=== PATIENT | male | born 1990 | race Two or more races ===

== ENCOUNTER 2020-07-20 14:00 | Outpatient (RCR) | payer BC, SELFPAY ==
--- NOTE | 2020-07-20 15:47 | MHC.PT.EP ---
[facility] [place] Office [place] Office [place] Office [address] [place] [address] Dr Alvaro Lu [address] [phone] F: [phone] F: [phone] F: [phone] F: [phone] Physical Therapy Plan of Care Date of Evaluation: 07/20/20 Date of Surgery: NA Diagnosis: PAIN IN L RAQUELLDER Assessment: Pt IS 29 YO M REFERRED TO PT FROM DR JORDAN WITH L SHLDER PAIN. Pt REPORTS SOME INJURIES TO Richelle BARRIOS PLAYING HIGH SCHOOL FOOTBALL, THEN AN INJURY AFTER HS (PLAYING FOOTBALL) TORN LIGAMENT . HAS NOT HAD PT. NO RECENT XRAYS. 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 PRESENTS WITH SOME POSTURAL DEFICITS (SLOUCHED POSTURE, GH SULCUS). Pt REPORTS MOST EXS HE WAS DOING IN PAST INVOLVE BENCH WORK (PRESSES ETC). SHOULD BENEFIT FROM RC/SCAP WORK FOR INCREASED SYMMETRY, PEC STRETCHING, POSTURE WORK, ST WORK PRN AND KT/FLOWERS TAPE TO INCREASE JOINT STABILIZATION. Frequency and Duration: The patient will be seen 2X/WK X 2 WKS THEN 1X/WK X 2 MORE WKS (45$ CO-PAY) Short Term Goals: 1.INCREASED POSTURE AWARENESS AND AWARENESS SHLDER CARE 2. I KT WITH ASSIST AT HOME Half-Way Goals: 1. I HEP WITH DC EX PLAN 2. DECREASED LSHLDER PAIN AT LEAST 50% WITH ADLS Treatment Plan: Modalities to reduce pain, spasms and effusion. Manual therapy to restore motion and function. Therapeutic exercise to improve strength and flexibility. Neuromuscular re-education for posture and balance. Therapeutic activities to return to functional activities of daily living. Electronically signed by: CASPER WILLIS PT Please sign and return to therapist. Thank you for your referral.
--- NOTE | 2020-08-31 08:41 | MHC.PT.DC ---
[facility] [place] Office [place] Office [place] Office [address] [place] [address] Dr Alvaro Lu [address] [phone] F: [phone] F: [phone] F: [phone] F: [phone] Physical Therapy Discharge Report Diagnosis: PAIN IN L RAQUELLDER Date of Surgery: NA Date of Evaluation: 07/20/20 Date of Discharge: 08/31/20 Treatments to Date: 1 Cancellations to Date: No Shows to Date: 2 Discharge Status: Visit Non-compliance Discharge Summary: Pt SEEN FOR INIT EVAL ONLY THEN NO SHOWED FURTHER APPTS. PER INIT EVAL :Pt IS 29 YO M REFERRED TO PT FROM DR JORDAN WITH L SOPHIE PAIN. Pt REPORTS SOME INJURIES TO Richelle BARRIOS PLAYING HIGH SCHOOL FOOTBALL, THEN AN INJURY AFTER HS (PLAYING FOOTBALL) TORN LIGAMENT . HAS NOT HAD PT. NO RECENT XRAYS. 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 PRESENTS WITH SOME POSTURAL DEFICITS (SLOUCHED POSTURE, GH SULCUS). Pt REPORTS MOST EXS HE WAS DOING IN PAST INVOLVE BENCH WORK (PRESSES ETC). SHOULD BENEFIT FROM RC/[employer] WORK FOR INCREASED SYMMETRY, PEC STRETCHING, POSTURE WORK, ST WORK PRN AND KT/FLOWERS TAPE TO INCREASE JOINT STABILIZATION. Electronically signed by: CASPER WILLIS PT Please sign and return to therapist. Thank you for your referral.
== END 2020-08-31 08:43 | disposition other institution (70) ==
LOC: HO.PTWFD 14:00
PROVIDERS: PCP Family Medicine; Visit Provider Family Medicine
DX: M25.512 Pain in left shoulder (principal)
CPT/HCPCS: 97110; 97140; 97162

== ENCOUNTER 2020-07-20 15:54 | Outpatient (REF) | payer BC, SELFPAY ==
[2020-07-20 16:47] LABS: Alanine Aminotransferase 53 U/L (0-40); Albumin Level 4.5 g/dL (3.5-5.0); Alkaline Phosphatase 56 U/L (39-117); Anion Gap 12 (12-20); Aspartate Amino Transferase 30 U/L (5-37); Bilirubin Total 1.4 mg/dL (0.0-1.0); Blood Urea Nitrogen 10 mg/dL (9-16); Calcium 9.4 mg/dL (8.4-10.2); Carbon Dioxide 27 mmol/L (22-29); Chloride 105 mmol/L (96-108); Cholesterol 186 mg/dL; Estimated Glomerular Filt Rate > 60; Glucose Fasting 81 mg/dL (60-99); HDL Cholesterol 46 mg/dL; LDL Cholesterol Calculated 110 mg/dl; Sodium 140 mmol/L (135-145); Total Protein 7.5 g/dL (6.5-8.0); Triglycerides 152 mg/dL
[2020-07-20 17:08] LABS: Syphilis Screen Nonreactive (Nonreactive); TSH reflex Free T4 0.73 uIU/mL (0.32-4.0)
[2020-07-21 04:11] LABS: HIV AB/AG Nonreactive (Nonreactive); HIV Num 1 0.04 S/CO (0.00-0.99); Hepatitis B Core Antibody Nonreactive (Nonreactive); ~HepC Num1 0.08 S/CO (0.00-0.79); ~Hepatitis B Surface Antibody REACTIVE (Nonreactive); ~Hepatitis C Antibody Nonreactive (Nonreactive)
[2020-07-21 04:12] LABS: HBsAGNum1 0.21 S/CO (0.00-0.99); Hepatitis B Surface Antigen Negative (Negative)
[2020-07-22 14:11] LABS: C. trachomatis RNA TMA NOT DETECTED (NOT DETECTED); N. gonorrhoeae RNA TMA NOT DETECTED (NOT DETECTED)
== END 2020-07-20 15:55 | disposition home or self-care (01) ==
LOC: HO.LAB 15:54
PROVIDERS: PCP Family Medicine; Visit Provider Family Medicine
DX: Z00.00 Encounter for general adult medical examination without abnormal findings (principal); Z11.3 Encounter for screening for infections with a predominantly sexual mode of transmission; Z11.8 Encounter for screening for other infectious and parasitic diseases; Z11.4 Encounter for screening for human immunodeficiency virus [HIV]; Z13.29 Encounter for screening for other suspected endocrine disorder; Z13.220 Encounter for screening for lipoid disorders; Z11.59 Encounter for screening for other viral diseases
CPT/HCPCS: 36415; 80053; 80061; 84443; 86704; 86706; 86780; 86803; 87340; 87389; 87491; 87591

== ENCOUNTER 2021-01-09 21:53 | Emergency (ER) | payer SELFPAY ==
[2021-01-09 22:11] VITALS: BP 130/61; PULSE 69; RESP 18; TEMP 37.3; O2SAT 97; BMI 36.1
--- NOTE | 2021-01-10 00:16 | ED.EAR ---
HPI - Ear Problem General Chief complaint: Ear Problems Stated complaint: ear pain Source: patient Mode of arrival: ambulatory Limitations: no limitations History of Present Illness HPI Narrative: 30-year-old male with no significant past medical history presents with recurrent ear infection. States that he does swim quite a bit, felt some to the right side approximately 2 weeks ago and now has left-sided ear pain and swelling. He does not report fevers or chills, chest pain or pressure, palpitations, shortness of breath, abdominal pain, abdominal distention, dysuria, hematuria, nausea, vomiting, diarrhea, constipation, or any other concerning symptoms. He does not report loss of hearing, drainage from the ear or trauma. MD Complaint: ear pain Location: left ear Duration: constant Severity: moderate Relieving factors: nothing Exacerbating factors: chewing and palpation Context: recent swimming Discharge from ear: no Associated symptoms ear: external ear tenderness and ear swelling Treatment prior to arrival: eardrops and attempt at ear wax removal Related Data Previous Rx's Medication Instructions Recorded ibuprofen 800 mg tablet 800 mg PO Q8H PRN 30 Days #90 tab 07/04/20 amoxicillin 875 mg-potassium 1 tab PO Q12H 5 Days #10 tab 01/10/21 clavulanate 125 mg tablet (Augmentin) ciprofloxacin 0.3 %-dexamethasone 4 drp OTIC (EARS) Q12H 7 Days ml 01/10/21 0.1 % ear drops,suspension (Ciprodex) ciprofloxacin 0.3 %-dexamethasone 4 drp OTIC (EARS) Q12H 7 Days ml 01/10/21 0.1 % ear drops,suspension (Ciprodex) Allergies Allergy/AdvReac Type Severity Reaction Status Date / Time No Known Allergies Allergy Verified 01/09/21 22:11 Review of Systems Review of Systems: Constitutional: No Fever, No Chills ENT/Mouth: Positive left ear Ear Pain, No Hoarseness, No sore throat Eyes: No Eye Pain, No Swelling, No Redness, No Foreign Body Cardiovascular: No Chest Pain, No SOB Respiratory: No Cough, No Dyspnea Gastrointestinal: No Nausea, No Vomiting, No Diarrhea, No abdominal Pain Genitourinary: No Dysuria, No Hematuria Musculoskeletal: No joint pain, No Myalgias, No Joint Swelling Skin: No Skin lacerations, No rash Neuro: No Weakness, No Numbness, No Paresthesias, No Loss of Consciousness, No Dizziness, No Headache Psych: No Anxiety/Panic, No Depression Heme/Lymph: no easy bruising, no Lymphadenopathy Endocrine: No Polyuria, No Polydipsia Yes all other systems are reviewed and are negative [facility] Past Medical History Attestation statement: The following information was validated with the patient. Source: old records reviewed Medical History Patient denies medical problems Social History Social History Advance Directives: No Physical Exam Vital Signs: Vital Signs: Last Vital Signs Temp 99.1 F 01/09/21 22:11 Pulse 69 01/09/21 22:11 Resp 18 01/09/21 22:11 BP 130/61 01/09/21 22:11 Pulse Ox 97 01/09/21 22:11 Body Mass Index 36.1 Appearance: Alert. Oriented X3. No acute distress. Head: Normal external exam. Normocephalic. Atraumatic. No Edmonds signs noted. No raccoon eyes noted Eyes: PERRLA. EOMI. Conjunctiva and sclera normal. Eyelids normal. ENT: Tympanic membrane and auditory canal to the right normal, tympanic membrane to the left bulging with effusion, auditory canal is erythematous and inflamed. Pharynx normal. Uvula midline. Moist mucous membranes. No trismus noted. No drooling noted. No muffled voice noted. No mastoid tenderness noted. Neck: Normal inspection. Neck supple. No adenopathy. Thyroid Normal. No meningeal signs. No neck mass noted. CVS: Normal heart rate and rhythm. Heart sound normal. No murmurs noted. Pulses equal to all extremities. Respiratory: No respiratory distress. Painless inspiration. Breath sounds normal. No wheezes/rales/rhonchi noted. Chest nontender. No accessory muscle usage noted or decreased air movement noted. Abdomen: Soft and nontender. Bowel sounds normal in all 4 quadrants. No distention noted. No organomegaly noted. No visible injury noted. Back: No CVA tenderness. Full range of motion noted. Skin: Skin warm and dry. Normal skin color. Normal skin turgor. No rashes/lesions/lacerations noted. Extremities: No lower extremity edema. Extremities exhibit normal range of motion. Extremities nontender. Neuro: cranial nerves 2-12 intact, no focal neural deficits, strength 5/5 to all extremities, No motor deficit. No sensory deficit. Cranial nerves 2-12 intact. No focal neural deficits. Course Course Course Narrative: 30-year-old male presents with recurrent ear infection. Physical exam is significant for otitis media to the left tympanic membrane is intact however bulging, has significant otitis externa with erythema and inflammation circumferentially throughout the auditory canal. No mastoid tenderness. Plan of care is for Ciprodex, Augmentin, and discharged home. Patient verbalized understanding of and agrees to plan of care. MDM - Ear Differential Diagnosis Differential diagnosis: Likely otitis externa, otitis media, foreign body in ear, ruptured TM and cerumen impaction Discharge Plan Discharge Clinical Impression: Otitis media Qualifiers: Otitis media type: suppurative Chronicity: acute Laterality: left Recurrence: recurrent Spontaneous tympanic membrane rupture: without spontaneous rupture Qualified Code(s): H66.005 - Acute suppurative otitis media without spontaneous rupture of ear drum, recurrent, left ear Otitis externa Qualifiers: Otitis externa type: swimmer's ear Chronicity: chronic Laterality: left Qualified Code(s): H60.332 - Swimmer's ear, left ear Patient Disposition: Home, Self-Care Instructions: Otitis Externa (ED), Ear Infection (ED) Additional Instructions: You were evaluated for recurrent ear infection. Please take Augmentin twice a day for the next 5 days. Please take Ciprodex ear drops twice a day for the next 7 days If symptoms persist please follow-up with ENT. I referred you to Dr. Sweet. Thank you for choosing this emergency department for evaluation. Please follow-up with primary care physician as needed. Return to the emergency department for any new, concerning, or worsening symptoms. Prescriptions: New ciprofloxacin-dexamethasone [Ciprodex] 0.3-0.1 % drops,suspension 4 drp otic (ears) Q12H 7 Days RF: 0 amoxicillin-pot clavulanate [Augmentin] 875-125 mg tablet 1 tab PO Q12H 5 Days Qty: 10 RF: 0 ciprofloxacin-dexamethasone [Ciprodex] 0.3-0.1 % drops,suspension 4 drp otic (ears) Q12H 7 Days RF: 0 No Action ibuprofen 800 mg tablet 800 mg PO Q8H PRN (Reason: pain) 30 Days Qty: 90 RF: 0 Referrals: Micah Sweet [Physician] - 2 days (recurrent otitis media and externa)
[2021-01-10] MEDS: Amoxicillin/Potassium Clav 875 MG TABLET PO (01:07)
== END 2021-01-10 01:13 | disposition home or self-care (01) ==
PROVIDERS: Emergency Provider Internal Medicine
DX: H66.002 Acute suppurative otitis media without spontaneous rupture of ear drum, left ear (principal); H60.332 Swimmer's ear, left ear; H92.02 Otalgia, left ear; Z79.899 Other long term (current) drug therapy
CPT/HCPCS: 99283